=== PATIENT | male | born 1945 | race Two or more races ===

== ENCOUNTER → 2023-07-29 | Outpatient (CLI) | payer MEDICARE ==
[~2023-07-29] MED LIST: GADOTERATE MEGLUMINE 5 MMOL/10 ML VIAL IV ONE
== END | disposition home or self-care (01) ==
LOC: MRI 12:18
PROVIDERS: ATTEND Psychiatry & Neurology Neurology
DX: S46.012A Strain of muscle(s) and tendon(s) of the rotator cuff of left shoulder, initial encounter (principal); M50.33 Other cervical disc degeneration, cervicothoracic region; M50.321 Other cervical disc degeneration at C4-C5 level; A88.1 Epidemic vertigo; M41.83 Other forms of scoliosis, cervicothoracic region; M50.31 Other cervical disc degeneration, high cervical region; M48.02 Spinal stenosis, cervical region; M50.323 Other cervical disc degeneration at C6-C7 level; E04.1 Nontoxic single thyroid nodule; M75.82 Other shoulder lesions, left shoulder; R60.0 Localized edema; J32.0 Chronic maxillary sinusitis; X58.XXXA Exposure to other specified factors, initial encounter; Y93.89 Activity, other specified; Y92.89 Other specified places as the place of occurrence of the external cause; Y99.8 Other external cause status
CPT/HCPCS: 72156; 70553; 70540; 73221; A9577